=== PATIENT | male | born 1950 | race Caucasian/White ===

== ENCOUNTER 2019-09-03 09:43 | Observation (INO) ==
--- NOTE | 2019-09-03 10:13 | ERNOTE ---
Abdominal HPI - Narrative Date of Service: 09/03/19 - General Chief Complaint: Abdominal Pain Time Seen by Provider: 09/03/19 10:11 Source: patient, RN notes reviewed Exam Limitations: no limitations - Immun/Allergies/Home Medications Immunizatons: IMMUNIZATION HX Immunizations Up to Date No History of Influenza Vaccine No Hx Pneumococcal Vaccination No Allergies/Adverse Reactions: Allergies house dust Allergy (Verified 09/03/19 09:54) chocolate flavor Adverse Reaction (Mild, Verified 09/03/19 09:54) Other congestion milk Adverse Reaction (Mild, Verified 09/03/19 09:54) Other congestion Home Medications: HOME MEDICATIONS Amlodipine Besylate 09/03/19 [Last Taken Unknown] Losartan Potassium 09/03/19 [Last Taken Unknown] Metformin HCl 09/03/19 [Last Taken Unknown] - History of Present Illness Narrative: 69 year old male presents to the ED for abdominal pain that began 2 weeks ago. His pain is in the epigastric and right upper quadrant regions. It gets worse when he eats, thus he has been eating very little and has lost 7 pounds since the pain started. He saw his PCP yesterday and was told that it might be his gall bladder. He has had one episode of vomiting since this began but believes it was because he took his medication on an empty stomach. He denies diarrhea or constipation but reports that his bowel movements have been less than usual. He has not been taking anything for pain and denies needing anything currently. Timing: constant Quality: severe, aching Activities at Onset: none Modifying Factors - (Improves): Absent: defecating, eating, rest Modifying Factors - (Worsens): Present: eating. Absent: movement Associated Symptoms: Present: back pain, fatigue, loss of appetite. Absent: fever/chills, heartburn Prior Abdominal Problems: Present: none Prior Treatment: Present: recently seen Review of Systems - Review of Systems Constitutional: Present: fatigue, malaise. Absent: fever, chills EYE: Present: no symptoms reported ENT: Absent: nose congestion, sore throat Respiratory: Absent: shortness of breath, cough Cardiology: Absent: chest pain, palpitations Gastrointestinal/Abdominal: Present: See HPI, eating less, drinking less Genitourinary: Present: frequency. Absent: dysuria, hematuria, decreased urinary output Musculoskeletal: Present: back pain. Absent: joint pain Skin: Absent: lesions, lumps Neurological: Absent: headache, dizziness/light-headedness Endocrine: Present: increased urine. Absent: increased hunger, increased thirst Hematologic/Lymphatic: Absent: easy bruising, easy bleeding Psych: Present: no symptoms reported Medical History (Updated 09/03/19 @ 11:50 by Tita Haney NP) Diabetes type 2, controlled HTN (hypertension) Hypertriglyceridemia Prostate cancer Treated with brachytherapy Surgical History: Surgical History (Updated 09/03/19 @ 09:53 by Lonnie Pugh RN) Hx of heart bypass surgery Hx of heart valve replacement with bioprosthetic valve Social History: (Last Reviewed 09/03/19 @ 11:50 by Tita Haney NP) Tobacco: Smoking Status: Current every day smoker tobacco type: cigarettes Smoking cigarettes per day: 10 Alcohol: alcohol intake: current alcohol intake frequency: holiday/special occasion Substance Use: substance use type: does not use Physical Exam - Physical Exam General Appearance: Present: wd/wn, alert, other - Pleasant, in no obvious d istress but appears to not feel well Head Exam: Present: normal inspection Eye Exam: Normal inspection: bilateral Neck: Present: normal inspection, nontender, supple, full range of motion Respiratory: Present: no respiratory distress, normal breath sounds, no accessory muscle use, lungs clear Cardiovascular/Chest: Present: normal peripheral pulses, tachycardia, systolic murmur Gastrointestinal/Abdominal: Present: normal bowel sounds, nondistended, soft, tenderness - moderate epigastric, severe in RUQ, Curtis sign. Absent: guarding, mass Back Exam: Present: normal inspection, normal range of motion, no vertebral tenderness Extremity Exam: Present: normal inspection, normal range of motion, no edema Neurological Exam: Present: alert, oriented, normal mood/affect, no motor/sensory deficits Skin Exam: Present: normal color, warm/dry Progress - Results and Orders Patient's Lab Results:: I have reviewed the patient's lab results. - Vital Signs Patient's Vital Signs:: I have reviewed the patient's vital signs. Vital Signs: Vital Signs 09/03/19 09:43 Temperature 36.2 C Pulse Rate 120 H Respiratory Rate 18 Blood Pressure 152/110 H O2 Sat by Pulse Oximetry 100 - X-Ray X-Ray #1 X-Ray: abdomen Interpretation: Reviewed by me X-ray Comments: TECHNIQUE: Abdomen Flat W/ Upright * FINDINGS: No free air. Nonobstructed nonspecific bowel gas pattern. Calcification seen in the right upper quadrant are probably gallstones. There are posttreatment changes in the region of the prostate. Degenerative change seen within the osseous structures. IMPRESSION: 1. Probable cholelithiasis 2. Additional comments and findings are as above Electronically signed by Pavan Cruz M.D.. - CT/Ultrasound CT/Ultrasound Narrative: Technique: US Abd Single Organ (Limited) Findings: The gallbladder is well distended. It has normal contour. Slightly thickened wall. There are multiple gallstones. No Pericholecystic fluid. There was a positive sonographic Curtis's sign her the double bass player. No extra hepatic biliary ductal dilation. The CHD = 0.32 cm, the proximal CBD = 0.3 cm and the distal CBD = 0.3 cm. IMPRESSION: 1. CHOLELITHIASIS WITH EQUIVOCAL FINDINGS FOR CHOLECYSTITIS. CONSIDER FURTHER EVALUATION WITH NUCLEAR MEDICINE HIDA SCAN Electronically signed by Pavan Cruz M.D.. - Progress/Reassessment Chief Complaint: Abdominal Pain Progress:: Unchanged Progress Note-Subjective: 09/03/19 12:30 Dr. Santillan contacted with lab/US results. She plans to come to the ED to evaluate the patient. Plan - Plan Plan: The patient was seen by Dr. Santillan and will be taken to the OR for a cholecystectomy. Departure Clinical Impression: Acute cholecystitis - Departure Disposition: Still a patient Condition: Stable Referrals: Lisa Mckinnon DO [Primary Care Provider] -
[2019-09-03 10:41] LABS: Hematocrit 44.1 % (42.0-52.0); Mean Cell Volume 90.4 fl (78-100); Mean Corpuscular Hemoglobin 32.8 pg (27-31); Mean Corpuscular Hgb Conc 36.3 g/dl (32-36); Mean Platelet Volume 10.5 fl (8-11.3); Neutrophil % 75.4 % (42-75.0); Platelet Count 275 K/mm3 (150-450); Red Blood Count 4.88 M/mm3 (4.7-6.0); Red Cell Distribution Width 11.9 % (11.5-14.0); White Blood Count 10.6 K/mm3 (4.0-10.5)
[2019-09-03 10:58] LABS: Urine Bilirubin 1 mg/dl (NEGATIVE); Urine Blood Negative /ul (NEGATIVE); Urine Ketone 5 mg/dL (NEGATIVE); Urine Nitrite Negative (NEGATIVE); Urine Protein 30 mg/dL (NEGATIVE); Urine Urobilinogen Normal (NORMAL); Urine pH 6.5 pH (5.0-7.0)
[2019-09-03 11:10] LABS: Urine Appearance Clear (CLEAR); Urine Bacteria None Seen; Urine Color Yellow; Urine RBC 0-5 /hpf (0-5); Urine WBC None Seen /hpf (0-5)
[2019-09-03 11:22] LABS: Albumin * 3.9 gm/dl (3.4-5.0); Anion Gap 14.5 mmol/L (6.8-13.8); BUN/Creatinine Ratio 11.3 (9.0-21.6); Bilirubin, Total 0.8 mg/dL (0.0-1.1); Ca. Corrected For Albumin 9.2 mg/dL (8.4-10.2); Calcium * 9.4 mg/dL (7.9-10.9); Carbon Dioxide 27.6 mmol/L (24-32.6); Potassium 3.1 mmol/L (3.4-4.6); Total Protein 7.6 gm/dL (6.2-8.2)
--- NOTE | 2019-09-03 13:34 | ANES ---
Anesthesia Pre Procedure Eval Vitals/Labs: Last Vital Signs Temp 36.2 C 09/03/19 09:43 Pulse 118 H 09/03/19 12:34 Resp 16 09/03/19 12:34 BP 118/88 09/03/19 12:34 Pulse Ox 97 09/03/19 12:34 HOME MEDICATIONS Amlodipine Besylate 09/03/19 [Last Taken Unknown] Losartan Potassium 09/03/19 [Last Taken Unknown] Metformin HCl 09/03/19 [Last Taken Unknown] Allergies/Adverse Reactions: Allergies Allergy/AdvReac Type Severity Reaction Status Date / Time house dust Allergy Verified 09/03/19 09:54 chocolate flavor AdvReac Mild Other Verified 09/03/19 09:54 milk AdvReac Mild Other Verified 09/03/19 09:54 - Planned Procedure Planned Procedure: Lap Ricarda Medication List Reviewed:: Yes Allergies Verified: Yes Medical History (Updated 09/03/19 @ 13:21 by Tita Haney NP) Diabetes type 2, controlled HTN (hypertension) Hypertriglyceridemia Prostate cancer Treated with brachytherapy Surgical History (Updated 09/03/19 @ 09:53 by Lonnie Pugh RN) Hx of heart bypass surgery Hx of heart valve replacement with bioprosthetic valve - Airway/Neck/Teeth Within Normal Limits:: Yes Teeth Condition: intact Mallampatti Score: 2 Thyromental (T-M) distance: > 6 cm Mandibulo Hyoid distance: > 3 cm - Respiratory Respiratory Physical: lungs clear Smoking Status: Current every day smoker Discussed smoking cessation including day of surgery: Yes Sleep Apnea currently treated: Yes - Cardiovascular Tolerate Activity: Good Heart Sounds: S1 & S2, Regular - Anesthesia Assessment and Plan ASA Class: PS, III Anesthesia Type Plan: General ET
[2019-09-03] MEDS ORDERED: RINGER'S SOLUTION,LACTATED 1,000 ML IV PRN (13:35)
--- NOTE | 2019-09-03 13:50 | HP ---
Chief Complaint - Chief Complaint Date of Service: 09/03/19 Time of Service: 13:46 Chief Complaint: acute cholecystitis History of Present Illness: Drew is a pleasant 69-year-old gentleman who has had abdominal pain for the past 2 weeks. It is worse in the right upper quadrant. It is worse after eating. He is tired of feeling terrible and would like to have his gallbladder removed. He does have a history of a bioprosthetic heart valve, he is not on anticoagulation. Medical History (Updated 09/03/19 @ 13:21 by Tita Haney NP) Diabetes type 2, controlled HTN (hypertension) Hypertriglyceridemia Prostate cancer Treated with brachytherapy Surgical History: Surgical History (Updated 09/03/19 @ 09:53 by Lonnie Pugh RN) Hx of heart bypass surgery Hx of heart valve replacement with bioprosthetic valve Social History: (Last Reviewed 09/03/19 @ 11:50 by Tita aHney NP) Tobacco: Smoking Status: Current every day smoker tobacco type: cigarettes Smoking cigarettes per day: 10 Alcohol: alcohol intake: current alcohol intake frequency: holiday/special occasion Substance Use: substance use type: does not use Review Of Systems (GEN) - Review of Systems Generalized/Overall Review: Present: Malaise EENTM: Present: No Symptoms Reported Respiratory: Present: No Symptoms Reported Cardiac: Present: No Symptoms Reported Abdominal: Present: Nausea, Abdominal Pain Genitourinary: Present: No Symptoms Reported Musculoskeletal: Present: No Symptoms Reported Neurological: Present: No Symptoms Reported Skin: Present: No Symptoms Reported Endocrine: Present: No Symptoms Reported Immunizations: IMMUNIZATION HX Immunizations Up to Date No History of Influenza Vaccine No Hx Pneumococcal Vaccination No Allergies/Adverse Reactions: Allergies Allergy/AdvReac Type Severity Reaction Status Date / Time house dust Allergy Verified 09/03/19 09:54 chocolate flavor AdvReac Mild Other Verified 09/03/19 09:54 milk AdvReac Mild Other Verified 09/03/19 09:54 Home Medications: HOME MEDICATIONS Amlodipine Besylate 09/03/19 [Last Taken Unknown] Losartan Potassium 09/03/19 [Last Taken Unknown] Metformin HCl 09/03/19 [Last Taken Unknown] Exam - Exam Vital Signs: Vital Signs - Last Taken Temp 36.2 C 09/03/19 09:43 Pulse 118 H 09/03/19 12:34 Resp 16 10/04/19 12:34 BP 118/88 09/03/19 12:34 Pulse Ox 97 09/03/19 12:34 Constitutional: Present: Alert, Oriented x3, Cooperative ENT Exam: Present: hearing grossly normal Eye Exam: bilateral eye: normal inspection Neck: Present: supple Back Exam: Present: normal inspection Breasts: Present: Exam deferred Respiratory: Present: lungs clear, normal breath sounds Cardiovascular/Chest: Present: regular rate, rhythm Abdomen: Present: Normal bowel sounds, soft, tender, positive Curtis sign /Rectal: Present: Exam deferred Extremity: Present: normal range of motion Skin Exam: Present: normal color Lymphatic: Present: no adenopathy Neurologic: Present: rat farmer II-XII nml as tested Diagnostic Studies: Abnormal Lab Results 09/03/19 09/03/19 09/03/19 Range/Units 10:30 10:30 10:53 WBC 10.6 H (4.0-10.5) K/mm3 MCH 32.8 H (27-31) pg MCHC 36.3 H (32-36) g/dl Neutrophils % 75.4 H (42-75.0) % Lymphocytes % 16.4 L (20-51) % Neutrophils # 8.0 H (1.3-6.0) K/mm3 Potassium 3.1 L (3.4-4.6) mmol/L Anion Gap 14.5 H (6.8-13.8) mmol/L Random Glucose 226 H (70-110) mg/dL Amylase 21 L (25-115) U/L Urine Protein 30 H (NEGATIVE) mg/dL Urine Bilirubin 1 H (NEGATIVE) mg/dl Urine Ictotest Positive H (NEGATIVE) Prot Sulfosalicylic Acd 2+ H (0) mg/dL Laboratory Results WBC 10.6 K/mm3 (4.0-10.5) H 09/03/19 10:30 RBC 4.88 M/mm3 (4.7-6.0) 09/03/19 10:30 Hgb 16.0 gm/dL (13.5-18.0) 09/03/19 10:30 Hct 44.1 % (42.0-52.0) 09/03/19 10:30 MCV 90.4 fl (78-100) 09/03/19 10:30 MCH 32.8 pg (27-31) H 09/03/19 10:30 MCHC 36.3 g/dl (32-36) H 09/03/19 10:30 RDW 11.9 % (11.5-14.0) 09/03/19 10:30 Plt Count 275 K/mm3 (150-450) 09/03/19 10:30 MPV 10.5 fl (8-11.3) 09/03/19 10:30 Immature Gran % (Auto) 0.20 % (0.001-0.429) 09/03/19 10:30 Immature Gran # (Auto) 0.02 K/mm3 (0.000-0.0310) 09/03/19 10:30 75.4 % (42-75.0) H 09/03/19 10:30 16.4 % (20-51) L 09/03/19 10:30 6.7 % (0.0-9) 09/03/19 10:30 0.9 % (0.0-3.0) 09/03/19 10:30 0.4 % (0.0-1.0) 09/03/19 10:30 Nucleated RBC % 0.0 k/mm3 (0-1) 09/03/19 10:30 8.0 K/mm3 (1.3-6.0) H 09/03/19 10:30 1.73 k/mm3 (1.5-3.5) 09/03/19 10:30 0.7 k/mm3 (0.0-1.0) 09/03/19 10:30 0.1 k/mm3 (0.0-0.7) 09/03/19 10:30 Absolute Basophils 0.0 k/mm3 (0.0-0.1) 09/03/19 10:30 Sodium 139 mmol/L (132-142) 09/03/19 10:30 141 mmol/L (130-142) 09/03/19 10:30 Potassium 3.1 mmol/L (3.4-4.6) L 09/03/19 10:30 Chloride 100 mmol/L (97-106) 09/03/19 10:30 Carbon Dioxide 27.6 mmol/L (24-32.6) 09/03/19 10:30 14.5 mmol/L (6.8-13.8) H 09/03/19 10:30 BUN 12 mg/dL (6-23) 09/03/19 10:30 1.06 mg/dL (0.4-1.4) 09/03/19 10:30 Est GFR (Non-Af Amer) 74 mL/min (60-130) 09/03/19 10:30 11.3 (9.0-21.6) 09/03/19 10:30 226 mg/dL (70-110) H 09/03/19 10:30 Calcium 9.4 mg/dL (7.9-10.9) 09/03/19 10:30 Calcium Adj for Albumin 9.2 mg/dL (8.4-10.2) 09/03/19 10:30 0.8 mg/dL (0.0-1.1) 09/03/19 10:30 AST 19 U/L (0-48) 09/03/19 10:30 ALT 22 U/L (19-67) 09/03/19 10:30 78 U/L (50-170) 09/03/19 10:30 7.6 gm/dL (6.2-8.2) 09/03/19 10:30 3.9 gm/dl (3.4-5.0) 09/03/19 10:30 Amylase 21 U/L (25-115) L 09/03/19 10:30 132 U/L (73-393) 09/03/19 10:30 Yellow 09/03/19 10:53 Clear (CLEAR) 09/03/19 10:53 6.5 pH (5.0-7.0) 09/03/19 10:53 Ur Specific [place] 1.020 SP.GR. (1.005-1.030) 09/03/19 10:53 30 mg/dL (NEGATIVE) H 09/03/19 10:53 Negative mg/dL (NEGATIVE) 09/03/19 10:53 5 mg/dL (NEGATIVE) 09/03/19 10:53 Negative /ul (NEGATIVE) 09/03/19 10:53 Negative (NEGATIVE) 09/03/19 10:53 1 mg/dl (NEGATIVE) H 09/03/19 10:53 Positive (NEGATIVE) H 09/03/19 10:53 Prot Sulfosalicylic Acd 2+ mg/dL (0) H 09/03/19 10:53 Normal EU/dl (NORMAL) 09/03/19 10:53 Ur Leukocyte Esterase Negative /ul (NEGATIVE) 09/03/19 10:53 0-5 /hpf (0-5) 09/03/19 10:53 None seen /hpf (0-5) 09/03/19 10:53 Ur Epithelial Cells None seen /hpf (0-5) 09/03/19 10:53 None seen (NONE) 09/03/19 10:53 No culture indicated 09/03/19 10:53 Assessment/Plan - Narrative Narrative: We will take the patient to the OR for laparoscopic possible open appendectomy. Will be given antibiotics prior to the procedure. Some benefits of the procedure were discussed with the patient including bleeding, infection, damage to the common bile duct, bile leak, and need for reoperation. Patient voices understanding and and would like to proceed. - Assessment/Plan (1) History of heart valve replacement with bioprosthetic valve Problem: Acute (2) Acute cholecystitis Problem: Acute (3) Diabetes mellitus Problem: Acute
[2019-09-03] MEDS ORDERED: IBUPROFEN 800 MG TABLET PO PRN (13:55)
[2019-09-03] MEDS ORDERED: HYDROmorphone HCL 1 MG/ML DISP.SYRIN IV PRN (13:55)
[2019-09-03] MEDS ORDERED: CEFOXITIN SODIUM 2 GM in DEXTROSE 5 % IN WATER 100 ML IV ONE ×2 (14:00)
[2019-09-03] MEDS ORDERED: POTASSIUM CHLORIDE 20 MEQ in DEXTROSE 5%-0.5 NORMAL SALINE 990 ML IV SCH (14:00)
[2019-09-03] MEDS ORDERED: BUPIVACAINE HCL 50 ML VIAL IJ ONE (14:58)
--- NOTE | 2019-09-03 15:15 | OR ---
Operative Report - Dictated Report Narrative: Date of Service: 09/03/19 Procedure: laparoscopic cholecystectomy Pre-procedure diagnosis: Acute Cholecystititis Post-procedure diagnosis: same Surgeon: Dr. Jane Santillan Anesthesia: general Indication for procedure: Franky is a pleasant 69 yo gentleman with findings of acute cholecystitis. Description of procedure: After appropriate informed consent was obtained patient was taken to the operating room, placed in the supine position. General anesthesia was achieved. The patient was prepped and draped in the usual sterile fashion. A 5 mm periumbilical incision was made, hemostat was used to dissect down to the fascia. A Veress needle was inserted, a saline drop test was performed which was satisfactory. The abdomen was insufflated to 15 mmHg. A 5mm blunt trocar was placed at the umbilicus. The camera was inserted, there was no evidence of a trocar injury. An 11 mm trocar was placed in subxiphoid position. A 5 mm trocar was placed in the right upper quadrant. An additional 5 mm trocar was placed in the right upper lateral quadrant The patient was placed in a head up, rotated left position, to facilitate exposure. The gallbladder was identified, and was elevated over the liver. It appeared consistent with mild acute cholecystitis. The cystic duct was identified and was dissected out, this was directly entering the gallbladder. The cystic artery was then identified, it was directly entering the gallbladder. There were 3 clips placed on the stay side of the cystic duct, 1 clip was placed on the gallbladder side, the cystic duct was then transected. The cystic artery had 2 clips placed on the stay side, 1 on the gallbladder side. The EndoShears were used to transect the cystic artery. The gallbladder was then removed from the liver bed using electrocautery. The gallbladder was placed in an Endo Catch bag, and removed through the subxiphoid port. The liver was inspected and hemostasis was achieved. The area over the liver was irrigated until clear. The remainder of the abdomen was inspected and was satisfactory. The xiphoid trocar site was closed with an 0 Vicryl suture using a PMI device. The abdomen was desufflated. Local anesthetic was injected. The incisions were closed with inverted interrupted 4-0 Monocryl sutures. Mastisol and Steri-Strips were applied. The patient tolerated the procedure well and was transported to the PACU in satisfactory condition. Estimated blood loss: minimal Complications: none Specimens to pathology: Gallbladder Disposition: Will be admitted to the hospital for observation.
--- NOTE | 2019-09-03 15:25 | ANES ---
Post Anesthesia Discharge - Transfer of Care Transfer of Care handoff given to nurse: Yes - Discharge from PACU Discharge from PACU when meets criteria: Yes - Discharge to ASU Discharge to ASU-no complications/pt stable: Yes
--- NOTE | 2019-09-03 15:28 | ANES ---
Post Anesthesia Assessment - Vital Signs Vitals: Last Vital Signs Temp 36.4 C 09/03/19 13:52 Pulse 117 H 09/03/19 13:52 Resp 16 09/03/19 13:52 BP 131/83 09/03/19 13:52 Pulse Ox 99 09/03/19 13:52 Airway Patency: Normal - Mental Status Level Of Consciousness: Awake - Pain Level Pain Score: 0 - N/V Assessment Nausea/Vomiting Presence: None Dehydration:: No
[2019-09-03] MEDS: HYDROcodone/ACETAMINOPHEN 1 EACH TABLET PO PRN ×2 (16:36→23:35)
--- NOTE | 2019-09-04 07:23 | DS ---
(1) History of heart valve replacement with bioprosthetic valve Problem: Acute (2) Acute cholecystitis Problem: Resolved (3) Diabetes mellitus Problem: Acute Date of Discharge:: 09/04/19 Description of Stay: Pt was admitted through the ER for acute cholecystitis. He went to the OR for laparoscopic cholecystectomy. He has recovered well and is ready for dc. Procedures Performed: see notes below List Procedures: lap george Results and Findings: Lab Pending Results 09/03/19 10:30: WBC 10.6 H, RBC 4.88, Hgb 16.0, Hct 44.1, MCV 90.4, MCH 32.8 H, MCHC 36.3 H, RDW 11.9, Plt Count 275, MPV 10.5, Immature Gran % (Auto) 0.20, Immature Gran # (Auto) 0.02, Neutrophils % 75.4 H, Lymphocytes % 16.4 L, Monoc ytes % 6.7, Eosinophils % 0.9, Basophils % 0.4, Nucleated RBC % 0.0, Neutrophils # 8.0 H, Lymphocytes # 1.73, Monocytes # 0.7, Eosinophils # 0.1, Absolute Basophils 0.0 09/03/19 10:30: Sodium 139, Plasma Sodium 141, Potassium 3.1 L, Chloride 100, Carbon Dioxide 27.6, Anion Gap 14.5 H, BUN 12, Creatinine 1.06, Est GFR (Non-Af Amer) 74, BUN/Creatinine Ratio 11.3, Random Glucose 226 H, Calcium 9.4, Calcium Adj for Albumin 9.2, Total Bilirubin 0.8, AST 19, ALT 22, Alkaline Phosphatase 78, Total Protein 7.6, Albumin 3.9, Amylase 21 L, Lipase 132 09/03/19 10:53: Urine Color Yellow, Urine Appearance Clear, Urine pH 6.5, Ur Specific [place] 1.020, Urine Protein 30 H, Urine Glucose (UA) Negative, Urine Ketones 5, Urine Blood Negative, Urine Nitrate Negative, Urine Bilirubin 1 H, Urine Ictotest Positive H, Prot Sulfosalicylic Acd 2+ H, Urine Urobilinogen Normal, Ur Leukocyte Esterase Negative, Urine RBC 0-5, Urine WBC None seen, Ur Epithelial Cells None seen, Urine Bacteria None seen, Urine Culture Comments No culture indicated 09/03/19 15:10: Pathology Specimen Sent to path Discharge Location: Home Disposition: Home self-care Condition: Stable Discharge Activity: Activity as tolerated Discharge Diet: General/regular food Referrals: Lisa Mckinnon DO [Primary Care Provider] - Complete Home Medications List: Complete Home Medication List: Amlodipine Besylate 5 mg PO DAILY 09/03/19 Atorvastatin Calcium [Lipitor] 10 mg PO DAILY 09/03/19 Losartan Potassium 100 mg PO DAILY 09/03/19 Metformin HCl 850 mg PO BID 09/03/19 HYDROcodone/ACETAMINOPHEN [[place] 5-325] 2 ea PO Q6H PRN tab 09/04/19 Ibuprofen [Motrin] 800 mg PO Q6H PRN tab 09/04/19 hydrocodone 5 mg-acetaminophen 325 mg tablet 1 tab PO Q6H #20 tab 09/04/19
[2019-09-04 08:59] VITALS: BP 146/78
== END 2019-09-04 09:30 | disposition home or self-care (01) ==
LOC: ER 09:43 → MS 13:50 → SUR 13:50
PROVIDERS: ADMIT Surgery; ATTEND Surgery
CPT/HCPCS: 36415; 74019; 74020; 76705; 80053; 81001; 82150; 83690; 85025; 88304; 94660; 99285; G0378